=== PATIENT | male | born 1995 | race Caucasian/White ===

== ENCOUNTER → 2020-01-27 17:47 | Outpatient (CLI) | payer OTHER, SELFPAY ==
[2020-01-27 18:42] LABS: Coronavirus 19 IgG Antibody Negative (Negative); Coronavirus 19 IgM Antibody Negative (Negative)
== END ==
PROVIDERS: PCP Emergency Medicine; Visit Provider Emergency Medicine
DX: Z03.818 Encounter for observation for suspected exposure to other biological agents ruled out (principal)
CPT/HCPCS: 86328

== ENCOUNTER → 2020-04-04 14:04 | Outpatient (CLI) | payer OTHER, SELFPAY ==
--- NOTE | 2020-04-04 14:07 | XR_ITS ---
PROCEDURE: XR WRIST RT MIN 3V CLINICAL INDICATION: right wrist injury Pain following injury a me again annulus I still see a fracture he does have a little prominence the scapholunate space that could be a variant which could also see with some ligamentous injury subtle old studies CT was probably not anything value S1 are welcome COMPARISON: CR HANDR3 HAND-RT 3 VIEWS from 09/13/2012 FINDINGS: No fracture or dislocation. No lytic or blastic change. There is normal mineralization. The joint spaces are well-preserved. No significant degenerative/arthritic changes. No erosive changes evident. Other findings:There is minimal prominence of the scapholunate space which is nonspecific but could be seen with ligamentous injury. IMPRESSION: No acute fracture. Minimal prominence of the scapholunate space Dictated b Pirere Brody MD 04/04/2020 14:36 Pierre Brody MD in [place] 04/04/2020 14:36
== END ==
PROVIDERS: PCP Emergency Medicine; Visit Provider Emergency Medicine
DX: M25.531 Pain in right wrist (principal)
CPT/HCPCS: 73110

== ENCOUNTER → 2022-10-27 09:50 | Outpatient (CLI) | payer OTHER, SELFPAY ==
--- NOTE | 2022-10-27 09:55 | XR_ITS ---
FINAL REPORT CLINICAL HISTORY: shoulder pain FINDINGS: 3 views of the right shoulder were obtained. There is no prior exam for comparison. There is no fracture or dislocation. The joint space is preserved. Soft tissues are normal. IMPRESSION: No acute osseous abnormality of the right shoulder. Reviewed, Interpreted and Dictated by Mary Brown MD Transcribed by Mariaa Toribio Authenticated and [facility]
== END ==
PROVIDERS: PCP Emergency Medicine; Visit Provider Orthopaedic Surgery
DX: M25.511 Pain in right shoulder (principal)
CPT/HCPCS: 73030

== ENCOUNTER → 2025-04-22 08:48 | Outpatient (REF) | payer SELFPAY ==
[2025-04-22 08:57] LABS: COC Drug Screen Collection Only
--- OUTSIDE RECORDS SUMMARY | 2025-04-22 09:03 | XMS_ITS | Clinical Summary ---
[facility] Address [address] [place] [address] Care Team Providers Care History Tutor Name Role Phone Hector Mariscal MD Primary Care Provider [phone] Social History Tobacco Use Types Packs/Day Years Used Date Smoking Tobacco: Never Assessed Abuse Screen Answer Date Recorded Unsafe at Home or Work/School Not on file Feels Threatened by Someone? Not on file Does Anyone Keep You from Co ntacting Others or Doint Things Outside the Home? Not on file 06/10/2023 Physical Sign of Abuse Present Not on file 1 Housing Stability Answer Date Recorded Current Living Arrangements Not on file 05/29 Potentially Unsafe Housing Conditions Not on akshat e 06/10/2023 Family and Community Support Answer Lobo e Recorded Help with Day-to-Day Activities Not on file 06/10/2023 Lonely or Isolated Not on file 06/10/2023 Employment Answer Date Recorded Do you want help finding or keeping work or a tohsa b? Not on file 06/10/2023 Disabilities Answer Date Recorded Concentrating, Remembering, or Making Decisions Difficulty Not on file 06/10/2023 Doing Errands Independently Difficulty Not on fi le 06/10/2023 Education Answer Date Recorded Help with school or training? Not on file Preferred Language Not on file 06/10/2023 Sex and Gender Information Value Date Recorded Sex Assigned at Not on file Legal Sex Male 8:27 AM EST Gender Identity Not on file Sexual Orientation Not on file Plan of Treatment Health Maintenance Due Date Last Done Comments ANNUAL PHYSICAL 10/13/2022 HEPATITIS C SCREENING 10/13/2022 COVID-19 Vaccine (2023- 5 season) 2024 07/28/2021, 04/13/2021 INFLUENZA VACCINE 05/29/2025 09/25/2014 TDAP/TD VACCINES (2 - Td or Tdap) 03/29/2027 03/29/2017 Pneumococcal Vaccine 0-49 Aged Out No longer eligible based on patient's age to complete this topic Insurance Care Teams History Tutor Relationship Specialty Start Date End Date Hector Mariscal MD [address] [place], [place] [id number] PCP - General Emergency Medicine 11/02/23
[2025-04-23 07:10] LABS: Hep A Ab, Total Negative (Negative)
[2025-04-23 08:13] LABS: Measles Antibodies, IgG 189.0 AU/mL (Immune >16.4); Mumps Abs, IgG <9.0 AU/mL (Immune >10.9); Rubella Antibodies, IgG 2.10 index (Immune >0.99)
== END ==
LOC: LAB 08:48
CPT/HCPCS: 36415; 86480; 86706; 86708; 86735; 86762; 86765; 86787